=== PATIENT | male | born 1955 | race Caucasian/White ===

== ENCOUNTER → 2018-04-08 13:07 | Outpatient (CLI) | payer OTHER, SELFPAY ==
--- NOTE | 2018-04-08 13:09 | DI.RAD.S_ITS ---
PROCEDURE: XR FOOT LT MIN 3V INDICATIONS: FOOT PAIN TECHNIQUE: 3 views of the foot were acquired. COMPARISON: None. FINDINGS: Bones: No fractures or dislocations. No suspicious bony lesions. Mild degenerative joint disease at the first MTPJ. Small erosion medial base of the first distal phalanx. Soft tissues: No tibiotalar joint effusion. Achilles tendon appears normal. 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 Dictated by: Forrest Richter M.D. on 04/08/2018 at 14:08 Approved by: Forrest Richter M.D. on 04/08/2018 at 14:10
== END ==
PROVIDERS: PCP Internal Medicine; Visit Provider Physician Assistant
DX: M19.072 Primary osteoarthritis, left ankle and foot (principal); M79.672 Pain in left foot
CPT/HCPCS: 73630

== ENCOUNTER 2019-05-18 07:59 | Day surgery (SDC) | payer MEDICARE, OTHER, SELFPAY ==
[2019-05-18 08:21] VITALS: BMI 25.1
[2019-05-18] MEDS: FLEETS ENEMA 1 EACH PR (08:35)
[2019-05-18 08:46] VITALS: BP 133/86; PULSE 68; RESP 12; TEMP 36.8; O2SAT 95
--- NOTE | 2019-05-18 09:26 | PM.HP.1 ---
History of Present Illness History of Present Illness Date Patient Seen: 05/18/19 Time Patient Seen: 09:27 Chief complaint: [id number] Narrative: Patient presents for colorectal screening. Last prior colonoscopy 2012 significant for polyps On further history denies any recent gastrointestinal symptoms. No nausea, vomiting, abdominal pain, loss of appetite, unexplained weight loss, change in bowel habits, diarrhea, constipation, melena, hematochezia, or bright red blood per rectum. Patient History Medical History Cholecystectomy planned (Acute) Hip replacement planned (Acute) Prostate CA (Acute) Family History (Updated 05/18/19 @ 08:58 by Jennifer Morales RN) Other Breast cancer Social History household members: spouse Smoking Status: Never smoker Family & Social History Family History Other Breast cancer Social History: household members spouse Meds Home Medications and Allergies Home Medications Medication Instructions Recorded Confirmed Type MULTIVITAMIN (#MULTIPLE VITAMINS) 1 cap PO QDAY #0 06/15/11 05/18/19 History [FISH OIL] 1 tab PO QDAY #0 06/15/11 05/18/19 History [IBUPROFEN] 2 tabs PO PRN #0 06/15/11 05/18/19 History ascorbic acid (vitamin C) 500 mg PO QDAY #0 06/15/11 05/18/19 History aspirin 325 mg PO PRN PRN 05/18/19 05/18/19 History famotidine 20 mg PO DAILY 05/18/19 05/18/19 History vitamin B complex 1 tab PO DAILY 05/18/19 05/18/19 History Allergies Allergy/AdvReac Type Severity Reaction Status Date / Time No Known Drug Allergies Allergy Verified 04/08/18 14:10 Review of Systems Review of Systems ROS Unobtainable: All systems reviewed & are unremarkable except as noted in HPI and below Exam Vital Signs (past 8 hours): - 05/18/19 08:46 Temperature 98.3 F Pulse Rate 68 Respiratory Rate 12 Blood Pressure 133/86 Pulse Oximetry 95 Oxygen Delivery Method Room Air Narrative Exam Narrative: General-adult male no acute distress, well nourished HEENT-moist mucous membranes, no scleral icterus Neck-supple with full range of motion, no lymphadenopathy Chest- no labored respirations, clear to auscultation bilaterally Cardiac-regular rate and rhythm Abdomen-soft, nontender, non distended Extremities-no edema, warm well perfused Neurological-alert and oriented x 3. No focal deficits Skin-normal temperature and turgor, no rashes or ulcers Assessment & Plan Assessment & Plan narrative: Patient is requiring colorectal screening. Colonoscopy is recommended. Technical details were discussed. Risks, benefits, alternatives explained. Risks including but not limited to sedation, aspiration, bleeding, pain, missed lesion, incomplete examination, need for further radiographic studies, colonic perforation, need for major abdominal surgery, and all attendant risks major surgery were discussed at length. All questions were answered to their satisfaction, and they voiced understanding.
[2019-05-18] MEDS: fentaNYL 250 MCG/5 ML INJ IV (09:55)
[2019-05-18] MEDS: MIDAZOLAM 5 MG/5 ML VIAL IV (09:55)
--- NOTE | 2019-05-18 09:58 | PM.OP.ENDO ---
Operative Date/Time/Diagnoses Date of procedure: 05/18/19 Time of procedure: 09:58 Pre-op diagnosis: screening colonoscopy Post-op diagnosis: same Procedure & Clinicians Study performed: Colonoscopy Same procedure as scheduled: Yes Indications: 64-year-old gentleman previous colonoscopy 2013 significant for polyps returns for screening colonoscopy. Surgeon: Vin Staton Procedure Notes SCOAP/Timeout: Performed Procedure in detail: Digital rectal exam was performed which was negative for internal masses normal of feeling prostate. The scope was then carefully inserted into the rectum and advanced to the colon. Quality of the prep was moderate. Improved with irrigation. The scope was advanced to the ileocecal valve. Upon reaching the bowel the scope was then carefully withdrawn. The colon was negative for masses, diverticulosis, bleeding and polyps. The scope was retroflexed within the the rectum which demonstrated grade 1 internal hemorrhoids. The rectum was desufflated and the scope was withdrawn Scope withdrawal time: 6 Sedation minutes: 21 Specimen(s): none sent Complications: none Impression: Normal colonoscopy Post-procedure Recommendations: Colonscopy in 10 years Disposition: same day surgery
[2019-05-18 10:00] VITALS: BP 106/69; PULSE 70; RESP 21; TEMP 37.3; O2SAT 92
[2019-05-18 10:05] VITALS: BP 110/71; PULSE 66; RESP 18; O2SAT 92
[2019-05-18 10:12] VITALS: BP 110/70; PULSE 64; RESP 18; O2SAT 92
[2019-05-18 10:17] VITALS: BP 112/68; PULSE 72; RESP 15; O2SAT 92
[2019-05-18 10:24] VITALS: BP 117/78; PULSE 62; RESP 12; O2SAT 93
[2019-05-18] MEDS: SODIUM CHLORIDE 0.9% 1,000 ML 200 ML IV (10:26)
== END 2019-05-18 10:47 | disposition home or self-care (01) ==
PROVIDERS: Surgery; PCP Internal Medicine; Visit Provider Specialist
PROC: 0DJD8ZZ Inspection of Lower Intestinal Tract, Via Natural or Artificial Opening Endoscopic (ICD-10-PCS; CPT 45378; principal; 2019-05-18 09:45)
DX: Z86.010 Personal history of colon polyps (principal)
CPT/HCPCS: G0105; 99152; J2250; J3010